=== PATIENT | male | born 1990 | race Two or more races ===

== ENCOUNTER 2018-09-19 04:18 | Emergency (ER) | payer MEDICAID ==
[~2018-09-19] VITALS: Ht 175.3 cm; Wt 99.8 kg
[2018-09-19 04:24] VITALS: BP 115/69
== END 2018-09-19 05:49 | disposition home or self-care (01) ==
LOC: ER 04:22
DX: K64.5 Perianal venous thrombosis (principal); K59.00 Constipation, unspecified; F17.200 Nicotine dependence, unspecified, uncomplicated